=== PATIENT | female | born 1955 | race Caucasian/White ===

== ENCOUNTER 2017-06-28 16:13 | Inpatient (IN) | payer OTHER ==
[~2017-06-28] VITALS: Ht 154.9 cm; Wt 111.7 kg
[~2017-06-28 16:13] MED LIST: ABILIFY10 M1 PO; ATI0.5 PO; BACO TOP; HIBICLENS118 ML TOP; LEXAPRO10 MG PO; REM15 PO; SYN75 PO; THERAGRAN-M1 TA4 PO; WEL75 PO; ZES10 PO
--- NOTE | 2017-06-28 16:40 | NUR ---
PT PRESENTS TO ED WITH C/O OF HIGH BS, SENT BY PMD. PT REPORTS SEEING PMD Saturday06/26/17 FOR THE FIRST TIME IN A WHILE AND FOLLOW UP BLOOD WORK SHOWING HIGH BS HAD PMD SENDING HER TO ED. PT REPORTS ABD PAIN LAST NIGHT, DENIES ABD PAIN AT TIME OF ASSESSMENT. PT REPORTS INCREASED URINARY FREQUENCY AND THIRST. PT PRESENTS WITH PITING EDEMA TO BILATERAL LOWER EXTREMITIES. PT DENIES V/D, PT REPORTS NAUSEA AND RECENT CONSTIPATION. PT HAS A HX OF THYROID DISORDER AND REPORTS SHE STOPPED TAKING MEDICATIONS FOR IT A YEAR AGO. PT UNSURE IF IT IS HYPO OR HYPER -THYROIDISM. PT CHANGED INTO GOWN, CONNECTED TO CARDIORESP MONITORS. DR MCKEON AT BEDSIDE FOR MSE.
[2017-06-28 17:55] LABS: BASOPHIL % 0.1 % (0-2)
[2017-06-28 17:58] LABS: CALCIUM 8.6 mg/dL (8.5-10.1); CARBON DIOXIDE 23.9 mmol/L (21-32); CHLORIDE SERUM 96 mmol/L (98-107); CREATININE SERUM 0.9 mg/dL (0.6-1.0); GFR1 > 60 mL/min; GLUCOSE SERUM 408 mg/dL (74-106); POTASSIUM SERUM 3.7 mmol/L (3.5-5.1); RED CELL DISTRIBUTION WIDTH 16.2 % (11.5-14.5); SODIUM SERUM 130 mmol/L (136-145)
[2017-06-28 17:59] LABS: PLATELET COUNT 57 x10^3mcL (130-400)
[2017-06-28 18:10] LABS: ALKALINE PHOSPHATASE 95 U/L (46-116); ALT/SGPT 113 U/L (14-59); AST/SGOT 118 U/L (15-37); BILIRUBIN TOTAL 1.25 mg/dL (0.20-1.00)
[2017-06-28 18:13] LABS: ALBUMIN 2.8 g/dL (3.4-5.0)
--- NOTE | 2017-06-28 19:03 | NUR ---
CHANGE OF SHIFT REPORT RECEIVED BY ENOC RANDOLPH TO CONTINUE CARE.
--- NOTE | 2017-06-28 19:10 | NUR ---
PT WHEELCHAIRED TO RESTROOM WITH ASSISTANCE OF ENOC RANDOLPH AND MICHAEL NICHOLS. NO DISTRESS NOTED AT THIS TIME.
--- NOTE | 2017-06-28 19:20 | NUR ---
PT AMBULATED SELF BACK TO WITH EVEN AND STEADY GAIT. NO DISTRESS NOTED AT THIS TIME. PT IN BED BREATHING EVEN AND UNLABORED, AAOX4.
[2017-06-28 19:45] LABS: microscopic required? NO
[2017-06-28 20:07] LABS: UA SPECIFIC GRAVITY 1.025 (1.005-1.035); urine erythrocyte NEGATIVE (NEGATIVE)
--- NOTE | 2017-06-28 20:39 | NUR ---
ADMISSION REPORT GIVEN TO ENOC YODER TO CONTINUE CARE.
--- NOTE | 2017-06-28 20:50 | NUR ---
RECEIVED PT FROM ED VIA [employer], PT STATED THAT SHE WAS CALLED IN BY HER PCP FOR AN ABNORMAL LAB BUT SHE IS NOT SURE WHICH ONE. AAOX4. NO SOB NOTED, LUNG SOUNDS DIMINISHED ON AUSCULTATION. DENIES CHEST PAIN/PRESSURE, NSR ON THE MONITOR. DENIES ABDOMINAL DISCOMFORT. W/ SCATTERED BUE AND BLE SMALL REDNESS. W/ BLE EDEMA. SIDE RAILS UPX2. CALL LIGHT ON REACH. HOB ELEVATED AT 30 DEG. PRIMARY NURSE SUPIN AT BEDSIDE FOR CONTINUITY OF CARE
[2017-06-28 21:00] VITALS: BP 181/93
[2017-06-28 21:07] VITALS: Ht 154.9 cm; Wt 111.7 kg
--- NOTE | 2017-06-28 21:54 | NUR ---
FSBS= 350, IR 12 UNITS SQ GIVEN PER SLIDING SCALE. CCH DIET, SANDWICH GIVEN.
[2017-06-28 22:09] VITALS: BP 173/69
[2017-06-28 22:18] LABS: PHOSPHOROUS 2.7 mg/dL (2.5-4.9)
[2017-06-28 22:19] LABS: CHOLESTEROL/HDL RATIO 7.3
--- NOTE | 2017-06-28 23:00 | NUR ---
HAD LARGE SOFT BM VIA BEDPAN, PERICARE PROVIDED.
[2017-06-28 23:37] VITALS: BP 169/67
[2017-06-29 06:14] LABS: CALCIUM 7.6 mg/dL (8.5-10.1); CARBON DIOXIDE 29.2 mmol/L (21-32); CHLORIDE SERUM 103 mmol/L (98-107); CREATININE SERUM 0.9 mg/dL (0.6-1.0); GFR1 > 60 mL/min; GLUCOSE SERUM 314 mg/dL (74-106); POTASSIUM SERUM 3.1 mmol/L (3.5-5.1); SODIUM SERUM 138 mmol/L (136-145)
[2017-06-29 06:42] VITALS: BP 128/53
--- NOTE | 2017-06-29 06:58 | NUR ---
BP 128/53 THIS AM. DENIES PAIN. FSBS =322 AND IR 12 UNITS SQ PER SLIDING SCALE GIVEN. NEW IV CATHETER#22 INSERTED TO RFA WITH GOOD BLD RETURNED AND FLUSHED WELL. IV CATHETER TO LAC REMOVED NO S/S OF INFLAMATION NOTED.
--- NOTE | 2017-06-29 07:52 | NUR ---
PT IS A+OX3, FORGETFUL, TELE 15, WEAK PEDAL PULSES, EDEMA BLE, LUNG SOUNDS DIMINSHED, TOLERATING RA, BOWEL SOUNDS ACTIVE, VOIDING AND BM VIA BED MONTES, GENERALIZED WEAKNESS, SCATTERED SMALL REDNESS ON BUE, IV IN RFA WITH NS @ 100 ML/HR, SITE WNL, K 3.1, CA 7.6, PT 12.6, PTT 23.4, RBC 40.7, PLT 57, NA 130, CL 96, A1C 11.3.
--- NOTE | 2017-06-29 08:57 | NUR ---
PT RESTING IN BED, NO RESPIRATORY DISTRESS NOTED, DENIES PAIN, STATES SHE IS HUNGRY.
[2017-06-29 09:07] VITALS: BP 104/54
--- NOTE | 2017-06-29 10:05 | NUR ---
PT RESTING IN BED, NO RESPIRATORY DISTRESS NOTED, DENIES PAIN, STATES SHE IS VERY HUNGRY.
--- NOTE | 2017-06-29 10:33 | NUR ---
PT RESTING IN BED, NO RESPIRATORY DISTRESS NOTED, GIVEN SANDWICH, TOLERATING WELL, NO SWALLOWING DIFFICULTIES.
--- NOTE | 2017-06-29 10:59 | NUR ---
Initial Nutrition Assessment- Dx: abnormal labs, diabetes poorly controlled, hypothyroidism. PMHx: hypothyroidism PSHx: cholecystectomy (10 years ago) Labs: (06/29/17) K 3.1 L, Glucose 314 H, Ca 7.6 L. Meds: Colace, D50%/water, Humulin, Levemir, Lopid, Morphine sulfate, Bryant, Sodium chl 0.9%, synthroid, Zestril, Zofran. Diet: NPO this morning (06/29/17) PO Intake: PO is NPO. Ht: 61 in (5 foot, 1 inches) Wt: 111.69 kg (245.7 pounds) BMI: 46.5 kg/m2, morbid obesity IBW: 105 pounds (47.7 kg) %IBW: 234% UBW: 180# Age: 61 Food Allergies: No known food allergies. Skin: Mike 18 Edema: Admitted with edema to BLE GI: Last BM 1 x 06/29/17. 60 year-old F. Pt admitted with dx: 5150 Hold, Cannot Care for Self/gravely disabled, Possible Toxic, Vs Metabolic Encephalopathy 2/2 polysubstance abuse vs severe hypothyroidism, Hyponatremia, Hypokalemia 3.2, Macrocytosis without anemia 104 MCV, Hx of Hypothyroidism, Possible DMOOC with HCS A1c Pending with Hyperglycemia, Hyperbilirubinemia with Transaminitis, Likely Medical Non Compliance, Possible Polysubstance Abuse, Incomplete database 2/2 refusal of rectal and genital exams and poor historian. Per Student H&P, patient denies any history of T2DM, denies taking any medications, admits increased urinary frequency 4x/daily, new onset blurry vision, increased thirst and dehydration x 2 weeks, mild numbness of right foot and toes. RDN visited with resident who was seen laying in bed, did not appear to be in any apparent distress or discomfort. Pt reports a fair appetite, had a sandwich this morning for breakfast, denies diet education. Consult for diabetes poorly controlled, hypothyroidism, extreme obesity, malnutrition. Problem with: N: no V: no D: no C: no Problems with: Chewing: no Swallowing: no Current appetite: fair Recent wt change: yes %wt change: 36%; pt states she is up from 180#. Vitamin/Supplement use: no Special diet at home: no Physical activity: no Education: denies diet education. Estimated Nutritional Needs Based on ideal body weight (47.7 kg) due to > 125# IBW, morbid obesity. Energy: 9048-2331 kcal/d (25-30 kcal/kg for obesity) Protein: 72-95 gm/d (1.5-2 gm/kg for obesity) Fluid: 6657-6476 mL/d (1 mL/kcal) or per doctor Nutrition Diagnosis 1. Inadequate energy intake related to current NPO status as evidenced by meets < 75% estimated needs. 2. Altered nutrition-related lab value related to uncontrolled blood glucose as evidenced by blood glucose of 314 (on 06/29/17). Intervention (RDN Recommendations) 1. Continues on NPO as medically appropriate per MD. 2. When/if medically appropriate, consider starting CCHO 60 gm diet. 3. Consult RDN prn. Monitor/Evaluate Goal: Intake via PO to meet least 75% of estimated needs. Monitor: PO intakes, Labs, GI function F/U in 5-7 days as low risk (07/04-)
--- NOTE | 2017-06-29 12:16 | NUR ---
PT RESTING IN BED, NO RESPIRATORY DISTRESS, HAVING LOOSE BM, STATES SHE IS STILL HVING BM AND ASKED NURSE TO COME BACK LATER.
--- NOTE | 2017-06-29 12:58 | NUR ---
PT HAD 1 LARGE BM, SOFT/LIQUID, BROWN, BED LINENS AND GOWN CHANGED, PT TURNED AND REPOSITIONED.
[2017-06-29 13:34] VITALS: BP 145/47
--- NOTE | 2017-06-29 13:36 | NUR ---
PT RESTING IN BED, COMPLAINING OF GENERAL DISCOMFORT AND HEADACHE, TYLENOL GIVEN, NO RESPIRATORY DISTRESS NOTED.
--- NOTE | 2017-06-29 14:43 | NUR ---
PT RESTING IN BED, NO RESPIRATORY DISTRESS NOTED, IN NO APPARANT PAIN, CAREGIVER AT BEDSIDE INQUIRING ABOUT PT STATUS.
--- NOTE | 2017-06-29 17:18 | NUR ---
PT RESTING IN BED, NO RESPIRATORY DISTRESS NOTED, DENIES PAIN, NAUSEA, SOB, AND HEADACHE.
[2017-06-29 18:02] VITALS: BP 155/97
--- NOTE | 2017-06-29 18:39 | NUR ---
PT RESTING IN BED, NO RESPIRATORY DISTRESS NOTED, DENIES PAIN, NAUSEA, SOB, AND HEADACHE.
--- NOTE | 2017-06-29 19:15 | NUR ---
RECEIVED BEDSIDE REPORT. SEEN PATIENT AWAKE, ALERT, ORIENTED, SLOW SPEECH BUT APPROPRIATELY. NO SOB NOTED. DIMINISHED LUNG SOUND. KEPT HOB AT 30DEG. GEN BODY WEAKNESS, OBESITY. STS TOLERATED TO DIET WELL. DENIES PAIN. SCD TO BLE INPLACED. IVF NS TO RFA INFUSING WELL. PLAN OF CARE INFORMED.
[2017-06-29 21:07] VITALS: BP 168/71
[2017-06-30 05:37] VITALS: BP 172/81
--- NOTE | 2017-06-30 06:39 | NUR ---
NO ANY DISTRESS THROUGHOUT SHIFT. DENIES PAIN OR HEADACHE. RKEG=322, IR 6 UNITS SQ GIVEN PER SLIDING SCALE. VOIDED VIA BED MONTES, NO BM LAST NIGHT. IVF NS CONTINUED.
[2017-06-30 06:43] LABS: BASOPHIL % 0.7 % (0-2)
[2017-06-30 06:50] LABS: PLATELET COUNT 56 x10^3mcL (130-400); RED CELL DISTRIBUTION WIDTH 16.3 % (11.5-14.5)
[2017-06-30 07:15] LABS: ALKALINE PHOSPHATASE 68 U/L (46-116); ALT/SGPT 84 U/L (14-59); AST/SGOT 102 U/L (15-37); BILIRUBIN TOTAL 0.79 mg/dL (0.20-1.00); CALCIUM 8.2 mg/dL (8.5-10.1); CARBON DIOXIDE 30.6 mmol/L (21-32); CHLORIDE SERUM 106 mmol/L (98-107); CREATININE SERUM 0.8 mg/dL (0.6-1.0); GFR1 > 60 mL/min; GLUCOSE SERUM 197 mg/dL (74-106); MAGNESIUM 1.7 mg/dL (1.8-2.4); PHOSPHOROUS 1.9 mg/dL (2.5-4.9); POTASSIUM SERUM 3.4 mmol/L (3.5-5.1); SODIUM SERUM 139 mmol/L (136-145); TOTAL PROTEIN, SERUM 6.2 g/dL (6.4-8.2)
[2017-06-30 07:40] LABS: ALBUMIN 2.4 g/dL (3.4-5.0)
--- NOTE | 2017-06-30 08:43 | NUR ---
PATIENT ALERT AND ORIENTED. TELE #15. PULSES PALPALBLE AND EQUAL, PEDAL PULSES WEAK. EDEMA NOTED BLE. LUNG SOUNDS DIMINSHED ON RA. BS ACTIVE, LBM 06/29/17. VOIDS FREELY, REPORTS NO PROBLEM WITH VOIDING. GENERALIZED WEAKNESS ABLE TO MOVE ALL EXREMETIES. SOME REDNESS NOTED ON BUE AND BLE. IV RFA, WNL, NS @100
[2017-06-30 08:58] VITALS: BP 154/88
--- NOTE | 2017-06-30 11:09 | NUR ---
PAGED DOCTOR BENITA FOR LABS, CA 8.2, PHOS 1.9, MAG 1.7
[2017-06-30 13:20] VITALS: BP 140/80
--- NOTE | 2017-06-30 15:42 | NUR ---
RESTING IN BED NO DISTRESS NOTED, BREATHING EVEN AND UNLABORED
[2017-06-30 16:59] VITALS: BP 155/85
--- NOTE | 2017-06-30 18:08 | NUR ---
PATIENT RESTING AFTER EATING DINNER, NO DISTRESS NOTED, DENIES PAIN AT THIS TIME, NO SOB NOTED
--- NOTE | 2017-06-30 19:20 | NUR ---
SEEN IN BED AWAKE, ALERT, ORIENTED X3, SLOW SPEECH BUT ANSWER QUESTIONS APPROPRIATELY.SLIGHTLY [place]. BREATHING EASY ON ROOM AIR. NSR ON TELE MONITOR. GEN BODY WEAKNESS, OBESITY. ABLE TO GRASP THE SIDERAILS AND SCOOCH HERSELF UP. VOIDS USING BEDPAN. IVF NS TO RFA INFUSING WELL AT 100ML/HR. SCD TO BLE INPLACED. PLAN OF CARE DISCUSSED. CALL LIGHT PLACED WITHIN EASY REACH. SIDERAILS UP X2.
--- NOTE | 2017-06-30 19:23 | NUR ---
ENDORSED TO ONCOMING NURSE, PATIENT RESTING COMFORTABLY, NO DISTRESS NOTED
--- NOTE | 2017-06-30 19:30 | NUR ---
SEEN IN BED AAOX4. NO RESP DISTRESS NOTED. HAVING BREATING TX PER RT AT THIS TIME. DIMINISHED LUNG SOUND. STS BACK PAIN AND LLE IS TOLERABLE AT THIS TIME. IVF NS INFUSING WELL TO RAC IV SITE. CALL LIGHT PLACED WITHIN EASY REACH. URINAL AT BEDSIDE. SIDERAILS UP X2. WILL CONTINUE TO MONITOR.
[2017-06-30 20:52] VITALS: BP 158/88
[2017-07-01] VITALS (7 sets, daily range): BP systolic 129–188; BP diastolic 77–89
--- NOTE | 2017-07-01 05:37 | NUR ---
NO COMPLAINTS OF PAIN THROUGHOUT SHIFT. PARTIAL BEDBATH GIVEN. IVF NS INFUSING WELL.
[2017-07-01 06:09] LABS: BASOPHIL % 0.9 % (0-2)
[2017-07-01 06:40] LABS: PLATELET COUNT 63 x10^3mcL (130-400); RED CELL DISTRIBUTION WIDTH 16.5 % (11.5-14.5)
[2017-07-01 06:42] LABS: CALCIUM 8.5 mg/dL (8.5-10.1); CARBON DIOXIDE 28.3 mmol/L (21-32); CHLORIDE SERUM 105 mmol/L (98-107); CREATININE SERUM 0.8 mg/dL (0.6-1.0); GFR1 > 60 mL/min; GLUCOSE SERUM 177 mg/dL (74-106); MAGNESIUM 1.8 mg/dL (1.8-2.4); PHOSPHOROUS 2.6 mg/dL (2.5-4.9); POTASSIUM SERUM 3.3 mmol/L (3.5-5.1); SODIUM SERUM 139 mmol/L (136-145)
--- NOTE | 2017-07-01 07:16 | NUR ---
BEDSIDE REPORT RECEIVED FROM [facility] SHIFT NURSE AT THIS TIME. PATIENT AWAKE, WATCHING TV, NO SIGNS OF DISTRESS NOTED. ORIENTED X3, FORGETFUL, IMPAIRED, RECENT/REMOTE MEMORY, UNABLE TO RECALL WHY SHE CAME TO THE HOSPITAL, THOUGHTS FLEETING. DENIES CHEST PAIN, NO DIZZINESS, TELE# 15, HR 77. SCD'S IN PLACE, ON ROOM AIR, NS INFUSING TO RFA AT 100 ML/HR, NO REDNESS OR INFILTRATION NOTED TO SITE. CALM AND COOPERATIVE WITH CARE, ALL SAFETY MEASURES IN PLACE, BED ALARM ON, WILL CONTINUE TO MONITOR.
--- NOTE | 2017-07-01 09:50 | NUR ---
DR INFORMED THAT SEBASTIAN CELIS CALLED AND STATED SHE HELPS PATIENT WITH ADL'S; SHOWERING, COOKING, WALKING, GROCERY SHOPPING AND ALL OTHER NEEDS. STATES SHE MET PATIENT [facility] 2 YE[facility] A[facility] AND PATIENT HAS NOT BEEN THE SAME AFTER HER PAST AWAY ABOUT 1 1/2 YRS AGO. STATES PATIENT LIVES ALONE, IS DEPRESSED AND AND WHEN SHE VISITED, THE PATIENT HAD POOR HYGIENE WITH MANY CANS OF SODA SURROUNDING HER. PATIENT WOULD HAVE BM AND VOID IN BED/COUCH, PATIENT HAD NOT TAKEN HER DIABETES MEDICATION, BLOOD PRESSURE MEDICATION, OR THYROID MEDICATION. CAREGIVER MADE AN APPOINTMENT WITH PCP AND BROUGHT PATIENT TO THE HOSPITAL WHEN THE BLOOD GLUCOSE LAB RESULTS CAME BACK IN THE 500'S. DR SINGER TO ENTER ORDERS NEEDED, WILL CONTINUE TO MONITOR.
--- NOTE | 2017-07-01 10:36 | NUR ---
NS IVF RATE CHANGED TO 20 ML/HR AT THIS TIME PER MD ORDER. ALL SAFETY MEASURES IN PLACE, WILL CONTINUE TO MONITOR.
--- NOTE | 2017-07-01 11:55 | NUR ---
SPOKE WITH DR HSU AT THIS TIME REGARDING BP 188/89, HR 81, PHYSICAL THERAPY UNABLE TO EVALUATE PATIENT AT THIS TIME DUE TO HIGH BP. PATIENT ASYMPTOMATIC, HAD INCONTINENT VOID X1, PATIENT HAS EDEMA NOTED TO BILATERAL HIPS WELL, PHYSICAL THERAPY TO RETURN THIS AFTERNOON AND RE ASSES BP. WILL STANDBY FOR ORDERS AND CONTINUE TO ASSESS.
--- NOTE | 2017-07-01 13:47 | NUR ---
P.T. NOTES ATTEMPTED TO WORK WITH PATIENT TWICE DURING AM. FIRST ATTEMPT, PATIENT N/A NURSING STAFF IN ROOM ASSISTING Pt W/CARE/MEDICATIONS. SECOND ATTEMPT TO WORK W/PATIENT, ASSESSED HER VITAL SIGNS: SUPINE: BP 188/89, SP02 93%, HR 81BPM; RECHECKED VS: BP 201/84, SP02 93%, HR 82BPM. PRIMARY RN IN ROOM NOTIFIED AND AWARE THAT Pt W/ELEVATED BP, UNSAFE FOR PT PARTICIPATION/ACTIVITY AT THIS TIME. WILL HOLD PT FOR NOW AND F/U IN PM. 2 PVE
--- NOTE | 2017-07-01 16:40 | NUR ---
DR ASH IN TO ASSESS PATIENT AT THIS TIME. PATIENT AWAKE, ALERT, NO SIGNS OF DISTRESS NOTED. ALL SAFETY MEASURES IN PLACE, WILL CONTINUE TO MONITOR.
--- NOTE | 2017-07-01 17:44 | NUR ---
HYGIENE PROVIDED AT THIS TIME FOR INCONTINENT VOID X1. SILICONE CREAM APPLIED, GOWN CHANGED, PATIENT REPOSITIONED FOR COMFORT. DINNER TRAY ASSIST PROVIDED, ALL SAFETY MEASURES IN PLACE, BED ALARM ON, WILL CONTINUE TO MONITOR.
--- NOTE | 2017-07-01 19:02 | NUR ---
BEDSIDE REPORT GIVEN TO [facility] SHIFT NURSE AT THIS TIME. PATIENT AWAKE, ALERT, WATCHING TV. ALL SAFETY MEASURES IN PLACE, BED ALARM ON, WILL ENDORSE CARE.
--- NOTE | 2017-07-01 19:21 | NUR ---
RECEIVED PATIENT IN BED AWAKE, ALERT,FORGETFUL AND SLOW TO ANSWER. NO SIGN OF ACUTE RESPIRATORY DISTRESS NOTED. BREATHING EASY AND NONLABOR SATTING AT 92% RA WITH DIMINISHED BS. TELE#15 NSR ON MONITOR. EDEMA NOTED TO BUE AND BLE AND HIPS. ABDOMEN ROUND, OBESE AND NONTENDER WITH ACTIVE BS. IV TO RFA INTACT AND INFUSING WELL. WILL CONTINUE TO MONITOR. CALL LIGHT WITHIN REACH.
--- NOTE | 2017-07-01 22:55 | NUR ---
AWAKE C/O PAIN TO BUE AND BLE NORCO OFFERED AND PATIENT REFUSED, REQUESTED TYLENOL INSTEAD. HANG WASTED WITNESSED BY LISA PATTEN. WILL CONTINUE TO MONITOR.
--- NOTE | 2017-07-02 01:32 | NUR ---
STILL AWAKE HAD BM X1 FORMED IN LARGE AMOUNT, WILL CONTINUE TO MONITOR.
--- NOTE | 2017-07-02 05:08 | NUR ---
CHECKED AT INTERVALS FOR NEEDS AND SAFETY. REPOSITIONED FOR COMFORT, ALL NEEDDS ATTENDED.
[2017-07-02 05:11] VITALS: BP 139/69
--- NOTE | 2017-07-02 05:42 | NUR ---
PATIENT REFUSED AM LAB DRAW, DR WHITNEY MADE AWARE.
[2017-07-02 07:30] VITALS: BP 148/67
--- NOTE | 2017-07-02 07:30 | NUR ---
BEDSIDE REPORT RECEIVED FROM [facility] SHIFT NURSE AT THIS TIME. PATIENT ASLEEP, NO SIGNS OF DISTRESS NOTED, BREATHING EVEN AND UNLABORED. DENIES CHEST PAIN, NO DIZZINESS, TELE# 15, HR 75. SCD'S IN PLACE, ON ROOM AIR, NS INFUSING TO RFA AT 20 ML/HR, NO REDNESS OR INFILTRATION NOTED TO SITE. PATIENT REFUSED AM LAB DRAW AND IS REFUSING TO TAKE MEDICATION, EDUCATED ON IMPORTANCE OF COOPERATING WITH MD ORDERS AND USED OF MEDICATION. VERBALIZED UNDERSTANDING AND STATES SHE "JUST DON'T WANT TO TAKE IT AND DON'T WANT TO GET POKED". ALL SAFETY MEASURES IN PLACE, BED ALARM ON, WILL CONTINUE TO MONITOR.
--- NOTE | 2017-07-02 08:45 | NUR ---
ROUNDS MADE AT THIS TIME WITH MD TEAM, CHARGE NURSE ANDRY, AND DR GOODMAN. PATIENT ASLEEP, EASILY AROUSED VIA VERBAL STIMULI. ALL QUESTIONS AND CONCERNS ADDRESSED, ALL SAFETY MEASURES IN PLACE, WILL CONTINUE TO MONITOR.
--- NOTE | 2017-07-02 10:10 | NUR ---
PHYSICAL THERAPY IN TO WORK WITH PATIENT AT THIS TIME WITH FWW. TELE MONITOR REMOVED PER MD ORDER AND RETURNED TO DANCE MASTER.
--- NOTE | 2017-07-02 11:14 | NUR ---
BED BATH PROVIDED AT THIS TIME. TOLERATED WELL, INTER DRY PLACE TO BILATERAL BREAST FOLDS. FWW DELIVERED BY PHYSICAL THERAPY, ALL SAFETY MEASURES IN PLACE, WILL CONTINUE TO MONITOR.
--- NOTE | 2017-07-02 13:40 | NUR ---
PATIENT SLEEPING, NO SIGNS OF DISTRESS NOTED, BREATHING EVEN AND UNLABORED. ALL SAFETY MEASURES IN PLACE, WILL CONTINUE TO MONITOR.
--- NOTE | 2017-07-02 14:00 | NUR ---
RECEIVED PATIENT FROM ENOC NG. FOR CONTINUE CARE. PATIENT A/OX3. TELE#15 = SR. DENIED PAIN. IVF OF NS 20CC/HR. NO RESP DISTRESS. CALL LIGHT IN REACH.
--- NOTE | 2017-07-02 15:50 | NUR ---
PHYSICAL THERAPY DAILY NOTES CO-SIGN All documentation done by the Box Office Manager for 07/02/17 has been reviewed. I agree with the documentation. Reviewed/Co-Signed by: Ruben Munson PT Documentation Done by:JOE JACOB PARKING ENFORCEMENT TECHNICIAN POC REVIEWED W/ PARKING ENFORCEMENT TECHNICIAN; PROGRESS VALERIA; EMPHASIS ON FALL PREVENTION, SAFE TASK SEQUENCING, STAIR MGMT, SAFE USE OF FWW, HEP; CASE MGMT DISPENSED FWW, BROUGHT TO ROOM & ADJUSTED ACCORDINGLY; HAND OUTS ON FALL PREVENTION & SAFE FWW USE DISPENSED. 07/01/17 PSYCH:MDD, RECURRENT, SEVERE W/ PSYCHOTIC FEATURES.
[2017-07-02] MEDS ORDERED: ZES20 PO (17:16)
[2017-07-02] MEDS ORDERED: BG FS (17:16)
[2017-07-02] MEDS ORDERED: LOP600 PO (17:16)
[2017-07-02] MEDS ORDERED: OSCD PO (17:17)
[2017-07-02] MEDS ORDERED: LEVEMIR100 U/M1 SC (17:18)
[2017-07-02] MEDS ORDERED: LEVEMIR100 U/M1 SQ (17:18)
[2017-07-02] MEDS ORDERED: GLU500 PO (17:18)
[2017-07-02] MEDS ORDERED: SYN75 PO (17:19)
[2017-07-02] MEDS ORDERED: GLU10 PO (17:19)
[2017-07-02 17:55] VITALS: BP 145/64
[2017-07-02 18:09] VITALS: BP 148/67
--- NOTE | 2017-07-02 18:52 | NUR ---
CONDITION STABLE. HAD [place] FOR DINNER. CONDITION NO SOGNIFICANT CHANGE. WILL BE D/C'D TO HOME. ENDORSE CARE TO [facility] NURSE.
--- NOTE | 2017-07-02 19:40 | NUR ---
PICKED UP BY [facility] VIA WHEELCHAIR. DISCHARGE INSTRUCTIONS GIVEN TO PATIENT AND VERBALIZED UNDERSTANDING. IN NO APPARENT DISTRESS.
== END 2017-07-02 19:44 | disposition home health service (06) | DRG 424 ==
LOC: ED 16:13 → DU 19:54 → MU 19:54 → DU 20:59 → MU 07-02 10:07
PROVIDERS: Emergency Medicine; ADMIT Family Medicine
DX: E03.9 Hypothyroidism, unspecified (principal); E43 Unspecified severe protein-calorie malnutrition; E11.65 Type 2 diabetes mellitus with hyperglycemia; Z68.42 Body mass index [BMI] 45.0-49.9, adult; D69.6 Thrombocytopenia, unspecified; E87.8 Other disorders of electrolyte and fluid balance, not elsewhere classified; E83.51 Hypocalcemia; E87.1 Hypo-osmolality and hyponatremia; E66.01 Morbid (severe) obesity due to excess calories; I16.0 Hypertensive urgency; F32.9 Major depressive disorder, single episode, unspecified; F12.90 Cannabis use, unspecified, uncomplicated; R74.0 Nonspecific elevation of levels of transaminase and lactic acid dehydrogenase [LDH]; E80.6 Other disorders of bilirubin metabolism; E78.1 Pure hyperglyceridemia; D75.89 Other specified diseases of blood and blood-forming organs; E87.6 Hypokalemia; Z91.14 Patient's other noncompliance with medication regimen; Z87.440 Personal history of urinary (tract) infections; Z79.899 Other long term (current) drug therapy; Z72.89 Other problems related to lifestyle
CPT/HCPCS: 36600; 82962; 83880; 97110-GP; 97116-GP; 97530-GP; J1815; J1940; J3490; J7030; Q0092

== ENCOUNTER 2017-10-14 22:18 | Emergency (ER) | payer OTHER ==
[~2017-10-14] VITALS: Ht 154.9 cm; Wt 83.9 kg
[~2017-10-14 22:18] MED LIST changes: +BG FS; +GLU10 PO; +GLU500 PO; +LEVEMIR100 U/M1 SC; +LEVEMIR100 U/M1 SQ; +LOP600 PO; +OSCD PO; +ZES20 PO
[2017-10-14 23:17] VITALS: Ht 154.9 cm; Wt 83.9 kg
[2017-10-15 06:16] VITALS: BP 138/86
== END 2017-10-15 06:16 | disposition home or self-care (01) ==
LOC: ED 22:18
DX: N64.4 Mastodynia (principal); L30.4 Erythema intertrigo; I10 Essential (primary) hypertension; E11.9 Type 2 diabetes mellitus without complications; F17.200 Nicotine dependence, unspecified, uncomplicated
CPT/HCPCS: 76641; Q0092

== ENCOUNTER 2018-01-02 07:33 | Inpatient (IN) | payer OTHER ==
[~2018-01-02] VITALS: Ht 154.9 cm; Wt 101.7 kg
[2018-01-02 08:42] LABS: BASOPHIL % 0.3 % (0-2)
[2018-01-02 08:43] LABS: PLATELET COUNT 102 x10^3mcL (130-400); RED CELL DISTRIBUTION WIDTH 14.6 % (11.5-14.5)
[2018-01-02 08:44] LABS: microscopic required? NO
[2018-01-02 08:51] LABS: CALCIUM 8.8 mg/dL (8.5-10.1); CARBON DIOXIDE 25.5 mmol/L (21-32); CHLORIDE SERUM 104 mmol/L (98-107); CREATININE SERUM 0.7 mg/dL (0.6-1.0); GFR1 > 60 mL/min; GLUCOSE SERUM 151 mg/dL (74-106); POTASSIUM SERUM 3.9 mmol/L (3.5-5.1); SODIUM SERUM 137 mmol/L (136-145)
[2018-01-02 09:01] LABS: UA SPECIFIC GRAVITY >=1.030 (1.005-1.035); urine erythrocyte NEGATIVE (NEGATIVE)
[2018-01-02 09:03] LABS: ALKALINE PHOSPHATASE 132 U/L (46-116); ALT/SGPT 86 U/L (14-59); AMYLASE 71 U/L (25-115); AST/SGOT 89 U/L (15-37); BILIRUBIN TOTAL 1.23 mg/dL (0.20-1.00); CHOLESTEROL 130 mg/dL (<200); HDL CHOLESTEROL 50 mg/dL (40-60); LIPASE 209 IU/L (73-393); T4(THYROXINE) 11.3 ug/dL (4.7-13.3); TOTAL PROTEIN, SERUM 7.9 g/dL (6.4-8.2)
[2018-01-02 11:54] LABS: MAGNESIUM 1.7 mg/dL (1.8-2.4); PHOSPHOROUS 2.7 mg/dL (2.5-4.9)
[2018-01-02 11:55] LABS: CHOLESTEROL/HDL RATIO 2.6
[2018-01-02 12:01] LABS: T3 TOTAL 1.32 ng/mL
[2018-01-02 12:03] LABS: FREE T4 1.21 ng/dL (0.76-1.46); FREE THYROXINE INDEX 2.9 ug/dL (1.4-4.5); T4(THYROXINE) 11.2 ug/dL (4.7-13.3)
[2018-01-02 13:46] VITALS: BP 190/88
[2018-01-02 15:39] LABS: AMPHETAMINE QUAL UR NONE DETECTED (NEG <=1000)
[2018-01-02 16:55] VITALS: BP 164/76
[2018-01-02 20:57] VITALS: BP 182/79
[2018-01-03] VITALS (7 sets, daily range): BP systolic 145–175; BP diastolic 64–98
[2018-01-03 06:14] LABS: BASOPHIL % 0.2 % (0-2); RED CELL DISTRIBUTION WIDTH 14.2 % (11.5-14.5)
[2018-01-03 06:38] LABS: CALCIUM 8.1 mg/dL (8.5-10.1); CARBON DIOXIDE 26.2 mmol/L (21-32); CHLORIDE SERUM 106 mmol/L (98-107); CREATININE SERUM 0.6 mg/dL (0.6-1.0); GFR1 > 60 mL/min; GLUCOSE SERUM 148 mg/dL (74-106); POTASSIUM SERUM 3.9 mmol/L (3.5-5.1); SODIUM SERUM 138 mmol/L (136-145)
[2018-01-03 06:57] LABS: PLATELET COUNT 91 x10^3mcL (130-400)
[2018-01-03 09:00] LABS: MAGNESIUM 1.8 mg/dL (1.8-2.4); PHOSPHOROUS 2.7 mg/dL (2.5-4.9)
[2018-01-04 06:15] VITALS: BP 161/73
[2018-01-04 06:43] LABS: BASOPHIL % 0.3 % (0-2); RED CELL DISTRIBUTION WIDTH 14.4 % (11.5-14.5)
[2018-01-04 06:50] LABS: CALCIUM 8.2 mg/dL (8.5-10.1); CARBON DIOXIDE 24.9 mmol/L (21-32); CHLORIDE SERUM 104 mmol/L (98-107); CREATININE SERUM 0.6 mg/dL (0.6-1.0); GFR1 > 60 mL/min; GLUCOSE SERUM 79 mg/dL (74-106); MAGNESIUM 1.8 mg/dL (1.8-2.4); PHOSPHOROUS 2.4 mg/dL (2.5-4.9); POTASSIUM SERUM 3.4 mmol/L (3.5-5.1); SODIUM SERUM 138 mmol/L (136-145)
[2018-01-04 07:10] LABS: PLATELET COUNT 98 x10^3mcL (130-400)
[2018-01-04 08:46] VITALS: Ht 154.9 cm; Wt 101.7 kg
[2018-01-04 10:01] VITALS: BP 142/72
[2018-01-04 13:04] VITALS: BP 145/74
[2018-01-04 17:25] VITALS: BP 162/71
[2018-01-04 23:00] VITALS: BP 152/62
[2018-01-05 05:10] VITALS: BP 166/76
[2018-01-05 06:14] LABS: BASOPHIL % 0.5 % (0-2)
[2018-01-05 06:25] LABS: CALCIUM 8.2 mg/dL (8.5-10.1); CARBON DIOXIDE 28.1 mmol/L (21-32); CHLORIDE SERUM 102 mmol/L (98-107); CREATININE SERUM 0.8 mg/dL (0.6-1.0); GFR1 > 60 mL/min; GLUCOSE SERUM 134 mg/dL (74-106); POTASSIUM SERUM 3.2 mmol/L (3.5-5.1); SODIUM SERUM 137 mmol/L (136-145)
[2018-01-05 07:01] LABS: PLATELET COUNT 116 x10^3mcL (130-400); RED CELL DISTRIBUTION WIDTH 14.6 % (11.5-14.5)
[2018-01-05 09:30] VITALS: BP 131/79
[2018-01-05 10:01] VITALS: BP 161/90
[2018-01-05 12:00] VITALS: BP 179/85
[2018-01-05 13:27] VITALS: BP 144/77
[2018-01-05 14:12] VITALS: BP 145/75
[2018-01-05] MEDS ORDERED: COL100 PO (16:08)
[2018-01-05] MEDS ORDERED: ZES20 PO (16:08)
[2018-01-05] MEDS ORDERED: CARAFATE1 GM PO (16:08)
[2018-01-05] MEDS ORDERED: FLO4 PO (16:18)
== END 2018-01-05 17:55 | disposition home or self-care (01) | DRG 254 ==
LOC: ED 07:33 → DU 11:01
PROVIDERS: Emergency Medicine; Family Medicine; Student in an Organized Health Care Education/Training Program
DX: K58.1 Irritable bowel syndrome with constipation (principal); E44.0 Moderate protein-calorie malnutrition; E66.01 Morbid (severe) obesity due to excess calories; K86.1 Other chronic pancreatitis; I10 Essential (primary) hypertension; E03.9 Hypothyroidism, unspecified; E11.9 Type 2 diabetes mellitus without complications; F32.9 Major depressive disorder, single episode, unspecified; E78.5 Hyperlipidemia, unspecified; F17.200 Nicotine dependence, unspecified, uncomplicated; F41.9 Anxiety disorder, unspecified; I16.0 Hypertensive urgency; N20.0 Calculus of kidney; K29.80 Duodenitis without bleeding; Z91.14 Patient's other noncompliance with medication regimen; Z68.41 Body mass index [BMI] 40.0-44.9, adult; Z90.49 Acquired absence of other specified parts of digestive tract
CPT/HCPCS: 82962; 83880; 84439; G0480; J0360; J1815; J1885; J3010; J7030; Q0092; Q0162

== ENCOUNTER 2018-04-19 23:16 | Emergency (ER) | payer OTHER ==
[~2018-04-19] VITALS: Ht 154.9 cm; Wt 99.8 kg
[~2018-04-19 23:16] MED LIST changes: +CARAFATE1 GM PO; +COL100 PO; +FLO4 PO
[2018-04-19 23:20] VITALS: Ht 154.9 cm; Wt 99.8 kg
[2018-04-20 00:16] LABS: BASOPHIL % 0.8 % (0-2)
[2018-04-20 00:23] LABS: PLATELET COUNT 87 x10^3mcL (130-400); RED CELL DISTRIBUTION WIDTH 14.7 % (11.5-14.5)
[2018-04-20 01:13] LABS: ALKALINE PHOSPHATASE 107 U/L (46-116); ALT/SGPT 47 U/L (14-59); AST/SGOT 49 U/L (15-37); BILIRUBIN TOTAL 1.4 mg/dL (0.20-1.00); CALCIUM 8.2 mg/dL (8.5-10.1); CARBON DIOXIDE 25.1 mmol/L (21-32); CHLORIDE SERUM 107 mmol/L (98-107); CREATININE SERUM 0.7 mg/dL (0.6-1.0); GFR1 > 60 mL/min; GLUCOSE SERUM 120 mg/dL (74-106); LIPASE 111 IU/L (73-393); POTASSIUM SERUM 3.7 mmol/L (3.5-5.1); SODIUM SERUM 141 mmol/L (136-145); TOTAL PROTEIN, SERUM 6.7 g/dL (6.4-8.2)
[2018-04-20 01:24] LABS: ALBUMIN 2.7 g/dL (3.4-5.0)
[2018-04-20 02:16] LABS: microscopic required? YES; urine erythrocyte NEGATIVE (NEGATIVE)
[2018-04-20 02:49] LABS: AMPHETAMINE QUAL UR NONE DETECTED (See below)
[2018-04-20 05:22] VITALS: BP 138/68
== END 2018-04-20 05:22 | disposition home or self-care (01) ==
LOC: ED 23:16
PROVIDERS: Emergency Medicine
DX: R10.32 Left lower quadrant pain (principal); R19.7 Diarrhea, unspecified; I10 Essential (primary) hypertension; E78.00 Pure hypercholesterolemia, unspecified
CPT/HCPCS: 83880; J2405; J3010; J7040

== ENCOUNTER 2018-05-04 11:37 | Emergency (ER) | payer OTHER ==
[~2018-05-04] VITALS: Ht 154.9 cm; Wt 113.4 kg
[2018-05-04 11:44] VITALS: BP 152/70; Ht 154.9 cm; Wt 113.4 kg
[2018-05-04 13:11] LABS: BASOPHIL % 0.3 % (0-2)
[2018-05-04 13:12] LABS: CALCIUM 8.7 mg/dL (8.5-10.1); CARBON DIOXIDE 26.6 mmol/L (21-32); CHLORIDE SERUM 107 mmol/L (98-107); CREATININE SERUM 0.7 mg/dL (0.6-1.0); GFR1 > 60 mL/min; GLUCOSE SERUM 118 mg/dL (74-106); POTASSIUM SERUM 3.8 mmol/L (3.5-5.1); SODIUM SERUM 141 mmol/L (136-145)
[2018-05-04 13:14] LABS: PLATELET COUNT 40 x10^3mcL (130-400); RED CELL DISTRIBUTION WIDTH 14.6 % (11.5-14.5)
[2018-05-04 13:20] LABS: ALKALINE PHOSPHATASE 102 U/L (46-116); ALT/SGPT 57 U/L (14-59); AMYLASE 57 U/L (25-115); AST/SGOT 59 U/L (15-37); BILIRUBIN TOTAL 1.19 mg/dL (0.20-1.00); LIPASE 107 IU/L (73-393); TOTAL PROTEIN, SERUM 7.3 g/dL (6.4-8.2)
[2018-05-04 13:23] LABS: ALBUMIN 3.1 g/dL (3.4-5.0)
== END 2018-05-04 14:37 | disposition home or self-care (01) ==
LOC: ED 11:37
PROVIDERS: Emergency Medicine
PROC: 3E023NZ Introduction of Analgesics, Hypnotics, Sedatives into Muscle, Percutaneous Approach (ICD-10-PCS; principal; 2018-05-04)
PROC: BW21ZZZ Computerized Tomography (CT Scan) of Abdomen and Pelvis (ICD-10-PCS; 2018-05-04)
DX: R10.9 Unspecified abdominal pain (principal); R19.7 Diarrhea, unspecified; I10 Essential (primary) hypertension; E07.9 Disorder of thyroid, unspecified; F99 Mental disorder, not otherwise specified
CPT/HCPCS: J1885

== ENCOUNTER 2018-06-21 08:03 | Inpatient (IN) | payer OTHER ==
[~2018-06-21] VITALS: Ht 154.9 cm; Wt 95.3 kg
[2018-06-21 08:14] VITALS: Ht 154.9 cm; Wt 95.3 kg
[2018-06-21 08:25] LABS: microscopic required? NO
[2018-06-21 08:31] LABS: BASOPHIL % 0.7 % (0-2); RED CELL DISTRIBUTION WIDTH 14.5 % (11.5-14.5)
[2018-06-21 08:32] LABS: urine erythrocyte NEGATIVE (NEGATIVE)
[2018-06-21 08:34] LABS: PLATELET COUNT 82 x10^3mcL (130-400)
[2018-06-21 08:41] LABS: CALCIUM 8.2 mg/dL (8.5-10.1); CARBON DIOXIDE 25.7 mmol/L (21-32); CHLORIDE SERUM 106 mmol/L (98-107); CREATININE SERUM 0.8 mg/dL (0.6-1.0); GFR1 > 60 mL/min; GLUCOSE SERUM 140 mg/dL (74-106); POTASSIUM SERUM 3.8 mmol/L (3.5-5.1); SODIUM SERUM 142 mmol/L (136-145)
[2018-06-21 08:45] LABS: ALKALINE PHOSPHATASE 99 U/L (46-116); ALT/SGPT 68 U/L (14-59); AST/SGOT 77 U/L (15-37); BILIRUBIN TOTAL 1.41 mg/dL (0.20-1.00); HDL CHOLESTEROL 47 mg/dL (40-60); LIPASE 103 IU/L (73-393); TOTAL PROTEIN, SERUM 7.7 g/dL (6.4-8.2); TRIGLYCERIDES 68 mg/dL (<150)
[2018-06-21 08:46] LABS: ALBUMIN 3.1 g/dL (3.4-5.0); CHOLESTEROL 128 mg/dL (<200); CHOLESTEROL/HDL RATIO 2.7
[2018-06-21 08:58] LABS: T3 TOTAL 0.72 ng/mL
[2018-06-21 09:05] LABS: FREE T4 0.74 ng/dL (0.76-1.46); FREE THYROXINE INDEX 1.8 ug/dL (1.4-4.5); T4(THYROXINE) 7.4 ug/dL (4.7-13.3)
[2018-06-21 11:44] VITALS: BP 147/78
[2018-06-21 12:28] LABS: MAGNESIUM 1.7 mg/dL (1.8-2.4); PHOSPHOROUS 2.8 mg/dL (2.5-4.9)
[2018-06-21 14:19] LABS: AMPHETAMINE QUAL UR NONE DETECTED (See below)
[2018-06-21 17:35] VITALS: BP 139/65
[2018-06-21 20:08] VITALS: BP 156/73
[2018-06-22 05:37] LABS: CALCIUM 7.9 mg/dL (8.5-10.1); CARBON DIOXIDE 22.5 mmol/L (21-32); CHLORIDE SERUM 110 mmol/L (98-107); CREATININE SERUM 0.6 mg/dL (0.6-1.0); GFR1 > 60 mL/min; GLUCOSE SERUM 159 mg/dL (74-106); POTASSIUM SERUM 3.2 mmol/L (3.5-5.1); SODIUM SERUM 143 mmol/L (136-145)
[2018-06-22 05:56] VITALS: BP 129/63
[2018-06-22 06:00] LABS: ALBUMIN 2.7 g/dL (3.4-5.0); BILIRUBIN DIRECT 0.6 mg/dL (0.0-0.2); BILIRUBIN TOTAL 1.17 mg/dL (0.20-1.00); TOTAL PROTEIN, SERUM 6.3 g/dL (6.4-8.2)
[2018-06-22 07:43] LABS: BASOPHIL % 0.5 % (0-2); RED CELL DISTRIBUTION WIDTH 14.2 % (11.5-14.5)
[2018-06-22 07:44] LABS: PLATELET COUNT 69 x10^3mcL (130-400)
[2018-06-22 09:32] VITALS: BP 130/63
[2018-06-22 16:50] VITALS: BP 134/57
[2018-06-22 20:24] VITALS: BP 151/70
[2018-06-23 05:26] VITALS: BP 151/66
[2018-06-23 06:34] LABS: CALCIUM 8.2 mg/dL (8.5-10.1); CARBON DIOXIDE 25.6 mmol/L (21-32); CHLORIDE SERUM 107 mmol/L (98-107); CREATININE SERUM 0.7 mg/dL (0.6-1.0); GFR1 > 60 mL/min; GLUCOSE SERUM 111 mg/dL (74-106); POTASSIUM SERUM 3.5 mmol/L (3.5-5.1); SODIUM SERUM 142 mmol/L (136-145)
[2018-06-23 07:42] LABS: BASOPHIL % 0.4 % (0-2); RED CELL DISTRIBUTION WIDTH 13.3 % (11.5-14.5)
[2018-06-23 07:45] LABS: PLATELET COUNT 82 x10^3mcL (130-400)
[2018-06-23 09:10] VITALS: BP 152/67
[2018-06-23 13:03] VITALS: BP 152/67
== END 2018-06-23 15:09 | disposition home or self-care (01) | DRG 197 ==
LOC: ED 08:03 → MU 10:13 → DU 11:01 → MU 06-22 21:34
PROVIDERS: Internal Medicine; Internal Medicine Gastroenterology; Specialist
PROC: 0DB68ZX Excision of Stomach, Via Natural or Artificial Opening Endoscopic, Diagnostic (ICD-10-PCS; principal; 2018-06-23 09:00)
DX: I86.4 Gastric varices (principal); D69.6 Thrombocytopenia, unspecified; E83.42 Hypomagnesemia; E66.01 Morbid (severe) obesity due to excess calories; K70.30 Alcoholic cirrhosis of liver without ascites; R16.1 Splenomegaly, not elsewhere classified; K44.9 Diaphragmatic hernia without obstruction or gangrene; K29.90 Gastroduodenitis, unspecified, without bleeding; I48.91 Unspecified atrial fibrillation; D72.819 Decreased white blood cell count, unspecified; E11.9 Type 2 diabetes mellitus without complications; F17.200 Nicotine dependence, unspecified, uncomplicated; E03.9 Hypothyroidism, unspecified; E78.5 Hyperlipidemia, unspecified; E87.6 Hypokalemia; R74.0 Nonspecific elevation of levels of transaminase and lactic acid dehydrogenase [LDH]; I10 Essential (primary) hypertension; K21.9 Gastro-esophageal reflux disease without esophagitis; F12.90 Cannabis use, unspecified, uncomplicated; E78.00 Pure hypercholesterolemia, unspecified; Z90.49 Acquired absence of other specified parts of digestive tract; Z71.3 Dietary counseling and surveillance; Z79.899 Other long term (current) drug therapy; Z79.4 Long term (current) use of insulin; Z71.6 Tobacco abuse counseling
CPT/HCPCS: 43235; 82962; 83880; 84439; G0480; J1200; J1610; J1815; J1885; J2250; J2270; J2310; J3010; J3490; J7030; J7042; Q0092; Q0162; Q9967

== ENCOUNTER 2019-08-28 15:00 | Emergency (ER) | payer MEDICARE, OTHER ==
[~2019-08-28] VITALS: Ht 154.9 cm; Wt 100.2 kg
[2019-08-28 15:08] VITALS: Ht 154.9 cm; Wt 100.2 kg
[2019-08-28 19:38] VITALS: BP 146/83
== END 2019-08-28 19:38 | disposition home or self-care (01) ==
LOC: ED 15:00
DX: F41.9 Anxiety disorder, unspecified (principal); I10 Essential (primary) hypertension; E78.5 Hyperlipidemia, unspecified; R35.0 Frequency of micturition; E11.9 Type 2 diabetes mellitus without complications; E03.9 Hypothyroidism, unspecified; E78.00 Pure hypercholesterolemia, unspecified; Z90.49 Acquired absence of other specified parts of digestive tract; Z13.89 Encounter for screening for other disorder
CPT/HCPCS: 82962

== ENCOUNTER 2019-12-31 05:38 | Inpatient (IN) | payer OTHER, MEDICARE ==
[~2019-12-31] VITALS: Ht 154.9 cm; Wt 90.7 kg
[~2019-12-31 05:38] MED LIST changes: +ALD25 PO; +SYN1 PO
[2019-12-31 05:45] VITALS: Ht 154.9 cm; Wt 90.7 kg
[2019-12-31 06:18] LABS: PLATELET COUNT 84 x10^3mcL (130-400); RED CELL DISTRIBUTION WIDTH 14.9 % (11.5-14.5)
[2019-12-31 06:19] LABS: BASOPHIL % 2.4 % (0-2)
[2019-12-31 06:23] LABS: ALKALINE PHOSPHATASE 101 U/L (46-116); ALT/SGPT 71 U/L (14-59); AST/SGOT 78 U/L (15-37); BILIRUBIN TOTAL 1.4 mg/dL (0.20-1.00); CARBON DIOXIDE 29.2 mmol/L (21-32); CHLORIDE SERUM 107 mmol/L (98-107); CREATININE SERUM 0.7 mg/dL (0.6-1.0); GFR1 > 60 mL/min; GLUCOSE SERUM 121 mg/dL (74-106); LIPASE 213 IU/L (73-393); POTASSIUM SERUM 3.4 mmol/L (3.5-5.1); SODIUM SERUM 141 mmol/L (136-145); TOTAL PROTEIN, SERUM 6.9 g/dL (6.4-8.2)
[2019-12-31 06:25] LABS: ALBUMIN 2.6 g/dL (3.4-5.0)
[2019-12-31 10:40] VITALS: BP 173/81
[2019-12-31 16:35] VITALS: BP 166/82
[2019-12-31 19:42] VITALS: BP 180/100
[2019-12-31 22:40] VITALS: BP 144/66
[2020-01-01 05:28] VITALS: BP 140/79
[2020-01-01 06:42] LABS: BASOPHIL % 0.6 % (0-2)
[2020-01-01 06:51] LABS: PLATELET COUNT 77 x10^3mcL (130-400); RED CELL DISTRIBUTION WIDTH 14.9 % (11.5-14.5)
[2020-01-01 07:18] LABS: CALCIUM 7.9 mg/dL (8.5-10.1); CARBON DIOXIDE 23.7 mmol/L (21-32); CHLORIDE SERUM 107 mmol/L (98-107); CREATININE SERUM 0.7 mg/dL (0.6-1.0); GFR1 > 60 mL/min; GLUCOSE SERUM 126 mg/dL (74-106); POTASSIUM SERUM 3.2 mmol/L (3.5-5.1); SODIUM SERUM 141 mmol/L (136-145)
[2020-01-01 07:31] VITALS: BP 144/75
[2020-01-01 11:16] VITALS: BP 144/75
[2020-01-01 12:00] VITALS: BP 122/71
== END 2020-01-01 17:05 | disposition home or self-care (01) | DRG 281 ==
LOC: ED 05:38 → DU 09:14 → MU 09:14 → DU 01-01 04:21
PROVIDERS: Emergency Medicine; ADMIT Family Medicine
DX: C22.0 Liver cell carcinoma (principal); K70.30 Alcoholic cirrhosis of liver without ascites; E66.01 Morbid (severe) obesity due to excess calories; E03.9 Hypothyroidism, unspecified; E11.9 Type 2 diabetes mellitus without complications; I10 Essential (primary) hypertension; Y90.0 Blood alcohol level of less than 20 mg/100 ml; G89.29 Other chronic pain; E78.00 Pure hypercholesterolemia, unspecified; F10.10 Alcohol abuse, uncomplicated; F32.9 Major depressive disorder, single episode, unspecified; F17.210 Nicotine dependence, cigarettes, uncomplicated; Z79.84 Long term (current) use of oral hypoglycemic drugs; Z90.49 Acquired absence of other specified parts of digestive tract; Z79.899 Other long term (current) drug therapy
CPT/HCPCS: 82962; C9113; G0378; J0360; J7030; Q9967

== ENCOUNTER 2020-05-10 16:17 | Inpatient (IN) | payer OTHER, MEDICARE ==
[~2020-05-10] VITALS: Ht 154.9 cm; Wt 132.7 kg
[2020-05-10 16:27] VITALS: Ht 154.9 cm; Wt 132.7 kg
[2020-05-10 18:53] LABS: BASOPHIL % 1.3 % (0-2); PLATELET COUNT 104 x10^3mcL (130-400); RED CELL DISTRIBUTION WIDTH 15.2 % (11.5-14.5)
[2020-05-10 19:08] LABS: CALCIUM 8.1 mg/dL (8.5-10.1); CARBON DIOXIDE 31.5 mmol/L (21-32); CHLORIDE SERUM 105 mmol/L (98-107); CREATININE SERUM 0.8 mg/dL (0.6-1.0); GFR1 > 60 mL/min; GLUCOSE SERUM 178 mg/dL (74-106); POTASSIUM SERUM 3.3 mmol/L (3.5-5.1); SODIUM SERUM 142 mmol/L (136-145)
[2020-05-10 19:12] LABS: ALBUMIN 2.5 g/dL (3.4-5.0); ALKALINE PHOSPHATASE 144 U/L (46-116); ALT/SGPT 128 U/L (14-59); AST/SGOT 128 U/L (15-37); BILIRUBIN TOTAL 1.58 mg/dL (0.20-1.00); CHOLESTEROL 130 mg/dL (<200); CHOLESTEROL/HDL RATIO 3.6; HDL CHOLESTEROL 36 mg/dL (40-60); LIPASE 112 IU/L (73-393); TOTAL PROTEIN, SERUM 7.1 g/dL (6.4-8.2); TRIGLYCERIDES 69 mg/dL (<150)
[2020-05-10 19:17] LABS: T3 TOTAL 1.05 ng/mL
[2020-05-10 19:54] LABS: FREE T4 0.5 ng/dL (0.76-1.46); FREE THYROXINE INDEX 0.8 ug/dL (1.4-4.5); T4(THYROXINE) 3.6 ug/dL (4.7-13.3)
[2020-05-10 20:56] LABS: MAGNESIUM 1.8 mg/dL (1.8-2.4); PHOSPHOROUS 1.9 mg/dL (2.5-4.9)
[2020-05-10 22:30] VITALS: BP 178/85
[2020-05-10 23:36] VITALS: BP 155/68
[2020-05-11 00:16] VITALS: BP 117/47
[2020-05-11 06:03] VITALS: BP 99/66
[2020-05-11 06:57] LABS: BASOPHIL % 0.4 % (0-2)
[2020-05-11 07:04] LABS: PLATELET COUNT 100 x10^3mcL (130-400); RED CELL DISTRIBUTION WIDTH 14.8 % (11.5-14.5)
[2020-05-11 07:41] LABS: CARBON DIOXIDE 23.6 mmol/L (21-32); CHLORIDE SERUM 106 mmol/L (98-107); CREATININE SERUM 0.7 mg/dL (0.6-1.0); GFR1 > 60 mL/min; GLUCOSE SERUM 142 mg/dL (74-106); MAGNESIUM 1.9 mg/dL (1.8-2.4); PHOSPHOROUS 2.4 mg/dL (2.5-4.9); POTASSIUM SERUM 3.1 mmol/L (3.5-5.1); SODIUM SERUM 141 mmol/L (136-145)
[2020-05-11 08:00] VITALS: BP 125/62
[2020-05-11 14:17] VITALS: BP 161/76
[2020-05-11 17:00] VITALS: BP 139/73
[2020-05-11] MEDS ORDERED: GLIPIZIDE XL10 M1 PO (18:08)
[2020-05-11] MEDS ORDERED: ZESTRIL40 MG PO (18:09)
[2020-05-11] MEDS ORDERED: VAL5 PO (18:10)
[2020-05-11 21:42] VITALS: BP 151/76
[2020-05-11 23:47] LABS: microscopic required? YES; urine erythrocyte 1+ (NEGATIVE)
[2020-05-12 00:10] LABS: AMPHETAMINE QUAL UR NONE DETECTED (See below)
[2020-05-12 06:09] VITALS: BP 146/67
[2020-05-12 07:29] LABS: CALCIUM 8.3 mg/dL (8.5-10.1); CARBON DIOXIDE 24.8 mmol/L (21-32); CHLORIDE SERUM 106 mmol/L (98-107); CREATININE SERUM 0.7 mg/dL (0.6-1.0); GFR1 > 60 mL/min; GLUCOSE SERUM 118 mg/dL (74-106); PHOSPHOROUS 2.9 mg/dL (2.5-4.9); POTASSIUM SERUM 3.4 mmol/L (3.5-5.1); SODIUM SERUM 142 mmol/L (136-145)
[2020-05-12 10:11] LABS: BASOPHIL % 0.3 % (0-2); RED CELL DISTRIBUTION WIDTH 14.5 % (11.5-14.5)
[2020-05-12 10:17] LABS: PLATELET COUNT 108 x10^3mcL (130-400)
[2020-05-12 10:25] VITALS: BP 189/97
[2020-05-12 13:51] VITALS: BP 168/70
[2020-05-12 17:47] VITALS: BP 165/69
[2020-05-12 20:43] VITALS: BP 185/79
[2020-05-13] VITALS (7 sets, daily range): BP systolic 119–168; BP diastolic 66–89
[2020-05-13 07:17] LABS: BASOPHIL % 0.3 % (0-2)
[2020-05-13 07:33] LABS: CALCIUM 8.1 mg/dL (8.5-10.1); CARBON DIOXIDE 26.4 mmol/L (21-32); CHLORIDE SERUM 108 mmol/L (98-107); CREATININE SERUM 0.9 mg/dL (0.6-1.0); GFR1 > 60 mL/min; GLUCOSE SERUM 111 mg/dL (74-106); PHOSPHOROUS 2.7 mg/dL (2.5-4.9); POTASSIUM SERUM 3.1 mmol/L (3.5-5.1); SODIUM SERUM 144 mmol/L (136-145)
[2020-05-13 07:51] LABS: PLATELET COUNT 102 x10^3mcL (130-400); RED CELL DISTRIBUTION WIDTH 15.1 % (11.5-14.5)
[2020-05-14 05:23] LABS: BASOPHIL % 0.2 % (0-2)
[2020-05-14 05:24] LABS: PLATELET COUNT 80 x10^3mcL (130-400); RED CELL DISTRIBUTION WIDTH 14.6 % (11.5-14.5)
[2020-05-14 05:56] VITALS: BP 167/76
[2020-05-14 05:58] LABS: CALCIUM 7.9 mg/dL (8.5-10.1); CARBON DIOXIDE 24.5 mmol/L (21-32); CHLORIDE SERUM 107 mmol/L (98-107); CREATININE SERUM 0.9 mg/dL (0.6-1.0); GFR1 > 60 mL/min; GLUCOSE SERUM 165 mg/dL (74-106); MAGNESIUM 2.1 mg/dL (1.8-2.4); SODIUM SERUM 142 mmol/L (136-145)
[2020-05-14 06:13] LABS: POTASSIUM SERUM 2.9 mmol/L (3.5-5.1)
[2020-05-14 09:17] VITALS: BP 163/69
[2020-05-14 13:38] VITALS: BP 179/85
[2020-05-14 17:32] VITALS: BP 120/73
[2020-05-14 20:05] VITALS: BP 169/63
[2020-05-15 04:51] VITALS: BP 145/78
[2020-05-15 06:58] LABS: BASOPHIL % 0.2 % (0-2)
[2020-05-15 07:05] LABS: CALCIUM 8.2 mg/dL (8.5-10.1); CARBON DIOXIDE 23.8 mmol/L (21-32); POTASSIUM SERUM 3.9 mmol/L (3.5-5.1)
[2020-05-15 08:02] LABS: PLATELET COUNT 81 x10^3mcL (130-400); RED CELL DISTRIBUTION WIDTH 14.9 % (11.5-14.5)
[2020-05-15 08:04] VITALS: BP 112/60
[2020-05-15 12:07] VITALS: BP 150/73
[2020-05-15 16:37] VITALS: BP 175/79
[2020-05-15 20:02] VITALS: BP 182/86
[2020-05-16 05:18] VITALS: BP 113/63
[2020-05-16 06:51] LABS: BASOPHIL % 0.3 % (0-2)
[2020-05-16 07:15] LABS: CALCIUM 8.3 mg/dL (8.5-10.1); CARBON DIOXIDE 24.7 mmol/L (21-32); CHLORIDE SERUM 108 mmol/L (98-107); CREATININE SERUM 0.9 mg/dL (0.6-1.0); GFR1 > 60 mL/min; GLUCOSE SERUM 169 mg/dL (74-106); PHOSPHOROUS 2.8 mg/dL (2.5-4.9); POTASSIUM SERUM 3.7 mmol/L (3.5-5.1); SODIUM SERUM 141 mmol/L (136-145)
[2020-05-16 07:47] LABS: PLATELET COUNT 87 x10^3mcL (130-400); RED CELL DISTRIBUTION WIDTH 15.6 % (11.5-14.5)
[2020-05-16 08:47] VITALS: BP 160/71
[2020-05-16 12:13] VITALS: BP 144/76
[2020-05-16 16:47] VITALS: BP 169/86
[2020-05-16 21:20] VITALS: BP 124/73
[2020-05-17 05:12] VITALS: BP 150/77
[2020-05-17 06:56] LABS: BASOPHIL % 0.4 % (0-2)
[2020-05-17 07:11] LABS: CALCIUM 8.5 mg/dL (8.5-10.1); CARBON DIOXIDE 23.9 mmol/L (21-32); CHLORIDE SERUM 108 mmol/L (98-107); CREATININE SERUM 0.8 mg/dL (0.6-1.0); GFR1 > 60 mL/min; GLUCOSE SERUM 177 mg/dL (74-106); POTASSIUM SERUM 3.7 mmol/L (3.5-5.1); SODIUM SERUM 142 mmol/L (136-145)
[2020-05-17 07:48] LABS: PLATELET COUNT 74 x10^3mcL (130-400); RED CELL DISTRIBUTION WIDTH 15.5 % (11.5-14.5)
[2020-05-17 08:20] VITALS: BP 168/84
[2020-05-17 12:26] VITALS: BP 153/74
[2020-05-17 16:46] VITALS: BP 166/88
[2020-05-17 20:18] VITALS: BP 168/80
[2020-05-18 05:18] VITALS: BP 153/81
[2020-05-18 07:02] LABS: CALCIUM 8.2 mg/dL (8.5-10.1); CARBON DIOXIDE 25.4 mmol/L (21-32); CHLORIDE SERUM 108 mmol/L (98-107); CREATININE SERUM 0.9 mg/dL (0.6-1.0); GFR1 > 60 mL/min; GLUCOSE SERUM 148 mg/dL (74-106); POTASSIUM SERUM 3.9 mmol/L (3.5-5.1); SODIUM SERUM 141 mmol/L (136-145)
[2020-05-18 08:32] LABS: BASOPHIL % 0.9 % (0-2)
[2020-05-18 08:34] LABS: PLATELET COUNT 84 x10^3mcL (130-400); RED CELL DISTRIBUTION WIDTH 15.8 % (11.5-14.5)
[2020-05-18 08:37] VITALS: BP 138/90
[2020-05-18 12:21] VITALS: BP 116/59
[2020-05-18 16:55] VITALS: BP 132/64
[2020-05-18 20:32] VITALS: BP 178/91
[2020-05-18 22:10] VITALS: BP 153/88
[2020-05-19 05:10] VITALS: BP 144/73
[2020-05-19 06:29] LABS: BASOPHIL % 0.9 % (0-2)
[2020-05-19 06:39] LABS: PLATELET COUNT 92 x10^3mcL (130-400); RED CELL DISTRIBUTION WIDTH 15.4 % (11.5-14.5)
[2020-05-19 06:46] LABS: CALCIUM 8.6 mg/dL (8.5-10.1); CARBON DIOXIDE 27.2 mmol/L (21-32); MAGNESIUM 1.8 mg/dL (1.8-2.4); POTASSIUM SERUM 3.9 mmol/L (3.5-5.1)
[2020-05-19 07:38] VITALS: BP 147/82
[2020-05-19 12:25] VITALS: BP 153/72
[2020-05-19 16:09] VITALS: BP 158/87
[2020-05-19 20:22] VITALS: BP 141/91
[2020-05-20 04:41] VITALS: BP 145/65
[2020-05-20 09:11] VITALS: BP 149/78
[2020-05-20 13:29] VITALS: BP 148/76
[2020-05-20 17:37] VITALS: BP 148/72
[2020-05-20 23:03] VITALS: BP 149/71
[2020-05-21 05:30] VITALS: BP 150/82
[2020-05-21 07:01] LABS: BASOPHIL % 0.4 % (0-2)
[2020-05-21 07:09] LABS: PLATELET COUNT 93 x10^3mcL (130-400); RED CELL DISTRIBUTION WIDTH 15.9 % (11.5-14.5)
[2020-05-21 07:23] LABS: CALCIUM 8.1 mg/dL (8.5-10.1); CARBON DIOXIDE 26.1 mmol/L (21-32); CHLORIDE SERUM 106 mmol/L (98-107); CREATININE SERUM 0.8 mg/dL (0.6-1.0); GFR1 > 60 mL/min; GLUCOSE SERUM 157 mg/dL (74-106); MAGNESIUM 1.9 mg/dL (1.8-2.4); PHOSPHOROUS 2.4 mg/dL (2.5-4.9); POTASSIUM SERUM 3.9 mmol/L (3.5-5.1); SODIUM SERUM 138 mmol/L (136-145)
[2020-05-21 09:21] VITALS: BP 155/78
[2020-05-21 13:43] VITALS: BP 145/93
[2020-05-21 17:34] VITALS: BP 126/74
[2020-05-21 21:10] VITALS: BP 148/79
[2020-05-22 05:39] VITALS: BP 145/86
[2020-05-22 08:07] VITALS: BP 147/73
[2020-05-22 09:08] LABS: CALCIUM 8.3 mg/dL (8.5-10.1); CARBON DIOXIDE 24.5 mmol/L (21-32); CHLORIDE SERUM 104 mmol/L (98-107); CREATININE SERUM 0.8 mg/dL (0.6-1.0); GFR1 > 60 mL/min; GLUCOSE SERUM 203 mg/dL (74-106); MAGNESIUM 2.4 mg/dL (1.8-2.4); PHOSPHOROUS 2.5 mg/dL (2.5-4.9); POTASSIUM SERUM 3.9 mmol/L (3.5-5.1); SODIUM SERUM 136 mmol/L (136-145)
[2020-05-22 10:46] LABS: BASOPHIL % 0.4 % (0-2); PLATELET COUNT 102 x10^3mcL (130-400); RED CELL DISTRIBUTION WIDTH 16.2 % (11.5-14.5)
[2020-05-22 12:33] VITALS: BP 153/72
[2020-05-22 17:00] VITALS: BP 151/80
[2020-05-22 20:32] VITALS: BP 126/78
[2020-05-23 06:11] VITALS: BP 147/72
[2020-05-23 07:45] LABS: BASOPHIL % 0.4 % (0-2)
[2020-05-23 08:11] LABS: CALCIUM 8.1 mg/dL (8.5-10.1); CARBON DIOXIDE 24.2 mmol/L (21-32); CHLORIDE SERUM 106 mmol/L (98-107); CREATININE SERUM 0.7 mg/dL (0.6-1.0); GFR1 > 60 mL/min; GLUCOSE SERUM 204 mg/dL (74-106); MAGNESIUM 1.8 mg/dL (1.8-2.4); PHOSPHOROUS 2.3 mg/dL (2.5-4.9); SODIUM SERUM 138 mmol/L (136-145)
[2020-05-23 08:37] LABS: PLATELET COUNT 104 x10^3mcL (130-400); RED CELL DISTRIBUTION WIDTH 16.5 % (11.5-14.5)
[2020-05-23 08:54] VITALS: BP 116/71
[2020-05-23 12:53] VITALS: BP 147/76
[2020-05-23 17:07] VITALS: BP 159/77
[2020-05-23 20:01] VITALS: BP 163/77
[2020-05-24 05:44] VITALS: BP 131/768
[2020-05-24 09:05] VITALS: BP 162/81
[2020-05-24 10:29] LABS: CALCIUM 8.4 mg/dL (8.5-10.1); CARBON DIOXIDE 25.1 mmol/L (21-32); CHLORIDE SERUM 106 mmol/L (98-107); CREATININE SERUM 0.8 mg/dL (0.6-1.0); GFR1 > 60 mL/min; GLUCOSE SERUM 215 mg/dL (74-106); POTASSIUM SERUM 4.3 mmol/L (3.5-5.1); SODIUM SERUM 136 mmol/L (136-145)
[2020-05-24 10:31] LABS: BASOPHIL % 0.2 % (0-2)
[2020-05-24 11:00] LABS: PLATELET COUNT 107 x10^3mcL (130-400); RED CELL DISTRIBUTION WIDTH 16.5 % (11.5-14.5)
[2020-05-24 16:30] VITALS: BP 149/94
[2020-05-24 19:16] VITALS: BP 150/99
[2020-05-25 05:53] VITALS: BP 136/67
[2020-05-25 07:12] LABS: BASOPHIL % 0.3 % (0-2)
[2020-05-25 07:19] LABS: PLATELET COUNT 105 x10^3mcL (130-400); RED CELL DISTRIBUTION WIDTH 16.3 % (11.5-14.5)
[2020-05-25 07:36] LABS: CALCIUM 8.3 mg/dL (8.5-10.1); CARBON DIOXIDE 26.4 mmol/L (21-32); CHLORIDE SERUM 105 mmol/L (98-107); CREATININE SERUM 0.8 mg/dL (0.6-1.0); GFR1 > 60 mL/min; GLUCOSE SERUM 121 mg/dL (74-106); POTASSIUM SERUM 4.7 mmol/L (3.5-5.1); SODIUM SERUM 138 mmol/L (136-145)
[2020-05-25 08:29] VITALS: BP 133/63
[2020-05-25 17:45] VITALS: BP 146/75
[2020-05-25 20:13] VITALS: BP 140/75
[2020-05-26 05:05] VITALS: BP 143/73
[2020-05-26 06:51] LABS: BASOPHIL % 0.4 % (0-2)
[2020-05-26 07:26] LABS: CALCIUM 8.5 mg/dL (8.5-10.1); CARBON DIOXIDE 30.8 mmol/L (21-32); CHLORIDE SERUM 105 mmol/L (98-107); CREATININE SERUM 0.9 mg/dL (0.6-1.0); GFR1 > 60 mL/min; GLUCOSE SERUM 155 mg/dL (74-106); POTASSIUM SERUM 4.6 mmol/L (3.5-5.1); SODIUM SERUM 138 mmol/L (136-145)
[2020-05-26 08:20] VITALS: BP 160/76
[2020-05-26 08:22] LABS: PLATELET COUNT 113 x10^3mcL (130-400); RED CELL DISTRIBUTION WIDTH 17.4 % (11.5-14.5)
[2020-05-26 13:36] VITALS: BP 130/67
[2020-05-26 17:20] VITALS: BP 140/79
[2020-05-26 20:25] VITALS: BP 109/50
[2020-05-27 05:47] VITALS: BP 148/70
[2020-05-27 06:33] LABS: BASOPHIL % 0.5 % (0-2)
[2020-05-27 06:56] LABS: CALCIUM 8.6 mg/dL (8.5-10.1); CARBON DIOXIDE 29.3 mmol/L (21-32); CHLORIDE SERUM 105 mmol/L (98-107); CREATININE SERUM 0.9 mg/dL (0.6-1.0); GFR1 > 60 mL/min; GLUCOSE SERUM 191 mg/dL (74-106); POTASSIUM SERUM 4.6 mmol/L (3.5-5.1); SODIUM SERUM 136 mmol/L (136-145)
[2020-05-27 07:13] LABS: PLATELET COUNT 103 x10^3mcL (130-400); RED CELL DISTRIBUTION WIDTH 16.1 % (11.5-14.5)
[2020-05-27 08:07] VITALS: BP 102/68
[2020-05-27 11:39] VITALS: BP 127/58
[2020-05-27 15:51] VITALS: BP 127/64
[2020-05-27] MEDS ORDERED: APR25 PO (16:06)
[2020-05-27 16:57] VITALS: BP 127/64
== END 2020-05-27 18:20 | DRG 279 ==
LOC: ED 16:17 → MU 19:44 → DU 19:44 → MU 05-23 23:24
PROVIDERS: Family Medicine; Internal Medicine; Specialist; Student in an Organized Health Care Education/Training Program; ADMIT Internal Medicine; ATTEND Internal Medicine
DX: K72.90 Hepatic failure, unspecified without coma (principal); E43 Unspecified severe protein-calorie malnutrition; E66.01 Morbid (severe) obesity due to excess calories; D69.6 Thrombocytopenia, unspecified; E83.51 Hypocalcemia; I10 Essential (primary) hypertension; F20.9 Schizophrenia, unspecified; K74.60 Unspecified cirrhosis of liver; E03.9 Hypothyroidism, unspecified; E11.9 Type 2 diabetes mellitus without complications; W01.0XXA Fall on same level from slipping, tripping and stumbling without subsequent striking against object, initial encounter; Y93.01 Activity, walking, marching and hiking; E78.00 Pure hypercholesterolemia, unspecified; Z20.828 Contact with and (suspected) exposure to other viral communicable diseases; Z60.2 Problems related to living alone; E87.6 Hypokalemia; I16.0 Hypertensive urgency; S51.812A Laceration without foreign body of left forearm, initial encounter; Y92.480 Sidewalk as the place of occurrence of the external cause; Y99.8 Other external cause status; Z90.49 Acquired absence of other specified parts of digestive tract; Z68.37 Body mass index [BMI] 37.0-37.9, adult; Z79.899 Other long term (current) drug therapy
CPT/HCPCS: 82962; 83880; 84439; 97116-GP; 97530-GP; G0378; G0480; J0360; J1815; J3480; J7030; Q0092; U0003-CS